=== PATIENT | male | born 1975 | race Caucasian/White ===

== ENCOUNTER → 2019-12-26 12:17 | Outpatient (CLI) | payer SELFPAY ==
--- NOTE | 2019-12-26 12:21 | RAD_ITS ---
STUDY: X-RAY CHEST REASON FOR EXAM: Male, 44 years old. Canoe fell off a rack and hit him right in the sternum area 2 weeks ago, pain has not improved TECHNIQUE: PA and lateral views of the chest. COMPARISON: None. FINDINGS: The lungs are clear and expanded. There is no demonstrated pleural abnormality. Normal size heart. Normal mediastinum and michelle. Normal visualized pulmonary arteries. Normal visualized aortic arch and descending thoracic aorta. Normal visualized thoracic spine. Normal visualized ribs, clavicles, and shoulders. There is no demonstrated abnormality of the visualized soft tissue structures of the upper abdomen. RAD/Chest PA and Lateral IMPRESSION: Normal x-ray examination of the chest. Electronically Signed: Jose G Fuller, at 12:44 EDT , Service support ,
== END ==
PROVIDERS: Referring Provider Physician Assistant Surgical; Visit Provider Physician Assistant Surgical
DX: S20.219A Contusion of unspecified front wall of thorax, initial encounter (principal); X58.XXXA Exposure to other specified factors, initial encounter; Y93.9 Activity, unspecified; Y92.9 Unspecified place or not applicable; Y99.9 Unspecified external cause status
CPT/HCPCS: 71046

== ENCOUNTER 2020-04-23 18:14 | Emergency (ER) | payer OTHER, SELFPAY ==
[2019-12-26 12:37] VITALS: BMI 32.9
[2020-04-23 18:15] VITALS: BP 131/73; PULSE 92; RESP 14; TEMP 37.1; O2SAT 96; BMI 29.0
--- NOTE | 2020-04-23 19:26 | ED.VISSUMM ---
- ER Visit Summary Date of Service: 04/23/20 Chief Complaint: Infected insect bite right wrist History of Present Illness: The patient is a 45 M history of gout on allopurinol. States he thinks he was bit by an insect about 4 days ago. He noticed a small swelling of his right wrist. He tried to open it up at home with a needle without any significant improvement. He was seen by an urgent care started on Augmentin which he just started and took his first dose today. Said on Wednesday tried to nisa it with a needle and got very little help. He denies any fever or chills or other complaints. No prior history is not diabetic. Physical Examination: Awake male no acute distress vital signs are stable and afebrile. HEENT exam unremarkable. Neck nontender no lymphadenopathy. Lungs clear to auscultation bilaterally. Heart regular rhythm no murmur. Abdomen soft nontender. Remedies moves all 4. Neurovascular intact right wrist distal radius radial side there is about a quarter sized area that looks like an infected insect bite. There is some redness. No streaks. No axillary lymphadenopathy. He has full range of motion to his shoulder, elbow wrist. Normal loss control representative strength and sensation to his right hand which is neurovascular intact. No bony deformity. Test Results: None Emergency Department Course and Treatment: Patient may or may not have had an insect bite to his right wrist I think we tried to nisa it he may cause it to be locally infected. He is on Augmentin. This is tender and swollen if not specifically highly fluctuant. I am to try to I&D and see if we get any more pus out. Let was applied to the wound. There was good at local anesthetic. I made a small incision about 1 cm in no significant pus out. I think this is mostly inflammation. Patient I discussed outpatient versus inpatient therapy with to try outpatient with oral antibiotics. He will be given a dose of his Augmentin prior to discharge. Treatment Plan: Continue the Augmentin twice daily. Warm compresses to the area. Tylenol Motrin for pain. Follow-up to ensure its improving. Return if worse. Disposition: Discharge Impression: Right wrist infected insect bite Abscess I&D by ER This note was generated with [employer] dictation software. It may contain incorrect words, spelling, and punctuation that were not noted in review of the chart prior to signing ED Disposition - Plan for ED Patient: Disposition: Home or Assisted Living Instructions: ED Cellulitis Prescriptions: Hydrocodone/Acetaminophen [Shelton 7.5-325 Tablet] 1 ea PO 4X/DAY PRN PRN 5 Days #20 tab PRN Reason: Pain Or Fever Prescription Printed Referrals: Froilan Mcintosh [[facility]] - 3-5 Days Additional Instructions: Make to decrease swelling. Augmentin twice a day with food on your stomach. Shelton Motrin for pain. Return if worsening swelling of the hand or red streaks moving up in your forearm. Fever you are feeling worse. If that occurs we may have to admit you for IV antibiotics. Follow up with a local primary care physician.
[2020-04-23] MEDS: Lidocaine/Epi/Tetracaine 50 ML 1 APPLIC TOPICAL (19:51)
--- NOTE | 2020-04-23 21:50 | ED.DEP ---
ED Disposition - Plan for ED Patient: Disposition: Home or Assisted Living Instructions: ED Cellulitis Prescriptions: Hydrocodone/Acetaminophen [Morven 7.5-325 Tablet] 1 ea PO 4X/DAY PRN PRN 5 Days #20 tab PRN Reason: Pain Or Fever Prescription Printed Referrals: Froilan Mcintosh [[facility]] - 3-5 Days Additional Instructions: Make to decrease swelling. Augmentin twice a day with food on your stomach. Morven Motrin for pain. Return if worsening swelling of the hand or red streaks moving up in your forearm. Fever you are feeling worse. If that occurs we may have to admit you for IV antibiotics. Follow up with a local primary care physician.
[2020-04-23] MEDS: HYDROcodone Bitartrate/Apap 5/325 Tablet PO (22:06)
== END 2020-04-23 22:08 | disposition home or self-care (01) ==
PROVIDERS: Emergency Provider Emergency Medicine
DX: S61.551A Open bite of right wrist, initial encounter (principal); W57.XXXA Bitten or stung by nonvenomous insect and other nonvenomous arthropods, initial encounter; Y93.9 Activity, unspecified; Y92.9 Unspecified place or not applicable; Y99.9 Unspecified external cause status; M10.9 Gout, unspecified
CPT/HCPCS: 10060; 99284

== ENCOUNTER 2021-05-22 04:07 | Emergency (ER) | payer OTHER, SELFPAY ==
[2021-05-22 04:07] VITALS: BP 155/114; PULSE 84; RESP 14; TEMP 36.1; O2SAT 96; BMI 31.5
--- NOTE | 2021-05-22 04:31 | ED.VIS.DENTA ---
HPI History of Present Illness Chief Complaint: Dental Informant: patient Narrative Narrative: 46-year-old male presents to the emergency department with right face swelling. Patient states that he went to the dentist today as he was having some dental discomfort. He reports that he was told he did not have an infection. Patient states that his face is now swollen and is turned red. He notes some swelling along his gumline.. PFSH PFSH Medical History Arthritis Broken leg BROKEN PELVIS Chest pain Fatigue Gout Knee pain Home Medications allopurinol 100 mg tablet 100 mg PO DAILY 12/26/19 [History Last Taken Unknown] clindamycin HCl [Cleocin HCl] 300 mg PO Q6H #40 capsule 05/22/21 [Rx Last Taken Unknown] Allergy/AdvReac Type Severity Reaction Status Date / Time No Known Allergies Allergy Verified 05/22/21 04:09 Social History Smoking Status: Never smoker alcohol intake: never ROS ROS ED Constitutional Constitutional ED: Denies chills or weight loss Eyes Eyes: Denies change in vision or diplopia ENT ENT ED: Reports other Details: See history of present illness ; Denies ear pain, rhinorrhea or sore throat Cardiovascular Cardiovascular: Denies chest pain, orthopnea, palpitations or racing heartbeat Respiratory/Chest Respiratory/Chest: Denies cough, dyspnea or orthopnea Gastrointestinal Gastrointestinal: Denies abdominal pain, diarrhea, nausea or vomiting Genitourinary Genitourinary ED: Denies dysuria, hematuria or urinary frequency Musculoskeletal Musculoskeletal: Denies arthralgias or myalgias Integumentary Denies abscess or rash Neurologic Neurologic: Denies headache(s) or weakness Psychiatric Psychiatric: Denies anxiety, depression, suicidal ideation or suicidal thoughts Endocrine Endocrinology: Denies polydipsia, polyphagia or polyuria Allergic/Immunologic Allergic/Immunologic ED: Denies mouth swelling, tongue swelling or urticaria EXAM Physical Exam Const Vital Signs: 05/22/21 04:07 Temperature 97.0 F L Temperature Source Oral Pulse Rate 84 Respiratory Rate 14 Blood Pressure 155/114 H Blood Pressure Mean 127 Pulse Ox 96 Oxygen Delivery Method Room Air Positive well nourished and well developed General Appearance ED: well developed HEENT Reports normocephalic, head/scalp atraumatic and moist mucous membranes HEENT Narrative: There is some mild right facial swelling with erythema. Along the gumline is a obvious dental abscess. There is no trismus Eyes PERRL and EOMs intact bilaterally Neck no lymphadenopathy, supple and no JVD Resp normal respiratory effort and clear to auscultation bilaterally Cardio regular rate, regular rhythm and no murmurs GI normal to inspection, nondistended, normoactive bowel sounds and non-tender Palpation: soft Back/Spine no CVA tenderness and normal ROM Extremity normal to inspection General Extremety ED: Negative for edema General Extremity: Negative for edema Neuro oriented x3 and CN's II-XII intact bilaterally Sensorium / Orientation: alert Motor Exam: strength 5/5 throughout Psych mental status grossly normal Mood & Affect: Negative for depressed or tearful Skin no rashes or lesions noted and no wounds MDM MDM MDM Narrative Medical decision making narrative: The gumline was locally anesthetized at the site of the abscess. An incision was made with 11 blade with expression of pus. Patient continue to massage and spit. Will be given a dose of clindamycin a prescription for same. Discharge Plan Triage Chief Complaint: Dental ED Provider: Rodolfo Britton Dx/Rx/DC Orders Clinical Impression: Abscess, dental Instructions: Dental Abscess Prescriptions: New clindamycin HCl [Cleocin HCl] 300 MG capsule 300 mg PO Q6H Qty: 40 RF: 0 No Action allopurinol 100 mg tablet 100 mg PO DAILY RF: 0 Primary Care Provider: Care Physician,No Primary Referrals: Care Physician,No Primary [Primary Care Provider] - Disposition Disposition: Home, Self Care
[2021-05-22] MEDS: Clindamycin HCl 150 MG Capsule 300 MG PO (04:34)
[2021-05-22] MEDS: Lidocaine 1% (20 ml mdv) 20 ML Vial INFILT (04:35)
[2021-05-22 04:38] VITALS: BP 155/114; PULSE 84; RESP 14; O2SAT 96
== END 2021-05-22 04:39 | disposition home or self-care (01) ==
PROVIDERS: Emergency Provider Emergency Medicine
DX: K04.7 Periapical abscess without sinus (principal); M10.9 Gout, unspecified; M19.90 Unspecified osteoarthritis, unspecified site; Z79.899 Other long term (current) drug therapy
CPT/HCPCS: 41800; 64999; 99282

== ENCOUNTER → 2022-09-16 | Outpatient (CLI) | payer MEDICAID, SELFPAY ==
[2022-09-16 12:18] LABS: Hematocrit 45.5 % (40-54); Hemoglobin 15.7 g/dL (13.0-16.5); Mean Corp Hgb Conc 34.5 g/dL (32-36); Mean Corpuscular Volume 89.7 fL (80-94); Mean Platelet Vol. 10.1 fl (6.2-12.0); Platelet Count 237 K/mm3 (150-450); RBC Distribution Width CV 12.3 % (11.6-14.6); RBC Distribution Width SD 40.3 fl (35.1-43.9); Red Blood Count 5.07 M/mm3 (4.6-6.2); White Blood Count 6.8 K/mm3 (4.4-11.0)
[2022-09-16 12:40] LABS: Anion Gap 3 (5-15); BUN 14 mg/dL (7-18); BUN/Creat Ratio 11.3 RATIO (10-20); Calcium,Total 9.6 mg/dL (8.5-10.1); Chloride 105 mmol/L (98-107); Creatinine, Serum 1.24 mg/dL (0.70-1.30); EST Glomerular Filtration Rate 66 mL/min (>60); Est Glom Filt Rate - Afr Amer 80 mL/min (>60); Glucose 112 mg/dL (74-106); Potassium 4.1 mmol/L (3.5-5.1); Sodium Level 140 mmol/L (136-145)
== END | disposition home or self-care (01) ==
DX: Z01.810 Encounter for preprocedural cardiovascular examination (principal)
CPT/HCPCS: 36415; 80048; 85027; 86850; 86900; 86901

== ENCOUNTER → 2023-05-04 | Outpatient (CLI) | payer MEDICAID, SELFPAY ==
[2023-05-04 10:20] LABS: Hematocrit 43.9 % (40-54); Hemoglobin 14.6 g/dL (13.0-16.5); Mean Corp Hgb Conc 33.3 g/dL (32-36); Mean Corpuscular Hgb 30.5 pg (27.0-32.0); Mean Corpuscular Volume 91.8 fL (80-94); Mean Platelet Vol. 10.3 fl (6.2-12.0); Platelet Count 243 K/mm3 (150-450); RBC Distribution Width CV 12.6 % (11.6-14.6); RBC Distribution Width SD 41.9 fl (35.1-43.9); Red Blood Count 4.78 M/mm3 (4.6-6.2); White Blood Count 6.4 K/mm3 (4.4-11.0)
[2023-05-04 10:45] LABS: ALB/GLOB Ratio 0.9 RATIO (0.9-2.4); AST(SGOT) 24 U/L (15-37); Alanine Aminotransfer ALT/SGPT 36 U/L (16-61); Albumin, Serum 3.6 g/dL (3.2-5.0); Alkaline Phosphatase 81 U/L (45-117); Anion Gap 4 (5-15); BUN 12 mg/dL (7-18); BUN/Creat Ratio 11.3 RATIO (10-20); Chloride 108 mmol/L (98-107); Cholesterol 137 mg/dL (200); Creatinine, Serum 1.06 mg/dL (0.70-1.30); EST Glomerular Filtration Rate 79 mL/min (>60); Est Glom Filt Rate - Afr Amer 96 mL/min (>60); Glucose 94 mg/dL (74-106); High Density Lipoprotein 67 mg/dL; PSA,Total- Diagnostic 0.28 ng/mL (0.0-4.0); Potassium 4.1 mmol/L (3.5-5.1); Protein, Total 7.6 g/dL (6.4-8.2); Sodium Level 141 mmol/L (136-145); Triglycerides 107 mg/dL; Very Low Density Lipoprotein 21 mg/dL (5-40)
[2023-05-04 10:48] LABS: Hemoglobin A1c 5.6 % (3.8-5.6)
== END | disposition home or self-care (01) ==
LOC: LAB 09:45
PROVIDERS: PCP Registered Nurse; Referring Provider Registered Nurse; Visit Provider Registered Nurse
DX: I63.9 Cerebral infarction, unspecified (principal); E78.5 Hyperlipidemia, unspecified; Z83.3 Family history of diabetes mellitus; R35.0 Frequency of micturition
CPT/HCPCS: 36415; 80053; 80061; 83036; 84153; 85027